=== PATIENT | female | born 1955 | race African-American/Black ===

== ENCOUNTER 2019-03-09 13:57 | Day surgery (SDC) | payer OTHER ==
[2019-03-09] MEDS ORDERED: Sodium Chloride 0.9(Preservative Free) 10 ML IJ ONE (13:58)
[2019-03-09] MEDS ORDERED: Xylocaine 1% Vial 30 ML PF IJ ONE (13:58)
[2019-03-09] MEDS ORDERED: Depo-Medrol 40 MG/ML IM ONE (13:58)
--- NOTE | 2019-03-09 16:43 | XRAY ---
Indication: Lumbar MARGY. Intraoperative fluoroscopy was provided for 14 seconds. 2 digital spot images submitted for interpretation demonstrates midline posterior needle tip projecting just posterior to the L3-L4 interspace. Correlate with intraoperative findings/report.
--- NOTE | 2019-03-09 16:54 | XRAY ---
19 seconds fluoroscopy time in surgery for lumbar MARGY.
== END 2019-03-09 15:49 | disposition home or self-care (01) ==
LOC: SDC-PAIN 13:57
PROVIDERS: ATTEND Psychiatry & Neurology Pain Medicine
DX: M54.16 Radiculopathy, lumbar region (principal); I10 Essential (primary) hypertension; M06.9 Rheumatoid arthritis, unspecified; K21.9 Gastro-esophageal reflux disease without esophagitis; F41.8 Other specified anxiety disorders; G62.9 Polyneuropathy, unspecified; Z86.73 Personal history of transient ischemic attack (TIA), and cerebral infarction without residual deficits
CPT/HCPCS: 62323; 72100; 77003; J1030; J2001; Q9966

== ENCOUNTER 2019-04-27 10:40 | Day surgery (SDC) | payer OTHER ==
[2019-04-27] MEDS ORDERED: Sodium Chloride 0.9(Preservative Free) 10 ML IJ ONE (10:41)
[2019-04-27] MEDS ORDERED: Depo-Medrol 40 MG/ML IM ONE (10:41)
[2019-04-27] MEDS ORDERED: DIPRIVAN 200 MG/20 ML IV ONE (11:45)
[2019-04-27] MEDS ORDERED: Ketamine HCl 50 MG/ML ONE (11:45)
--- NOTE | 2019-04-27 12:21 | XRAY ---
23 seconds fluoroscopy time in surgery for right L4-S1 transforaminal MARGY.
--- NOTE | 2019-04-27 12:21 | XRAY ---
Indication: Right L4-S1 transforaminal MARGY. Intraoperative fluoroscopy was provided for 23 seconds. 3 digital spot images submitted for interpretation demonstrates posterior needle tips projecting over the expected course of the right L4 and L5 nerve roots. Small amount of contrast injected for needle tip placement. Correlate with intraoperative findings/report.
[2019-04-27] MEDS ORDERED: Lactated Ringers 1,000 ML IV ONE (14:30)
== END 2019-04-27 12:20 | disposition home or self-care (01) ==
LOC: SDC-PAIN 10:40
PROVIDERS: ATTEND Psychiatry & Neurology Pain Medicine
DX: M54.16 Radiculopathy, lumbar region (principal); I10 Essential (primary) hypertension; K21.9 Gastro-esophageal reflux disease without esophagitis; F41.8 Other specified anxiety disorders; G62.9 Polyneuropathy, unspecified; M06.9 Rheumatoid arthritis, unspecified; Z79.899 Other long term (current) drug therapy
CPT/HCPCS: 64483; 64484; 72100; 77003; J1030; J2704; Q9966

== ENCOUNTER 2019-11-16 10:44 | Day surgery (SDC) | payer OTHER ==
[2019-11-16] MEDS ORDERED: Depo-Medrol 40 MG/ML IM ONE (10:45)
[2019-11-16] MEDS ORDERED: Sodium Chloride 0.9% 10 ML FLUSH Syringe IJ ONE (10:45)
[2019-11-16] MEDS ORDERED: Ketamine HCl 50 MG/ML ONE (11:58)
[2019-11-16] MEDS ORDERED: DIPRIVAN 200 MG/20 ML IV ONE (11:58)
--- NOTE | 2019-11-16 14:10 | XRAY ---
40 seconds fluoroscopy time in surgery for right L4-S1 transforaminal MARGY.
--- NOTE | 2019-11-16 14:21 | XRAY ---
Indication: Right L4-S1 transforaminal MARGY. Intraoperative fluoroscopy was provided for 40 seconds. For digital spot images submitted for interpretation demonstrates posterior needle tips projecting over the expected course of the right L4 and L5 nerve roots. Small amount of contrast injected for needle tip placement. Correlate with intraoperative findings/report.
[2019-11-16] MEDS ORDERED: Lactated Ringers 1,000 ML IV ONE (14:54)
== END 2019-11-16 12:35 | disposition home or self-care (01) ==
LOC: SDC-PAIN 10:44
PROVIDERS: ATTEND Psychiatry & Neurology Pain Medicine
DX: M54.16 Radiculopathy, lumbar region (principal); I10 Essential (primary) hypertension; G62.9 Polyneuropathy, unspecified; I25.2 Old myocardial infarction; Z86.73 Personal history of transient ischemic attack (TIA), and cerebral infarction without residual deficits; K21.9 Gastro-esophageal reflux disease without esophagitis; M06.9 Rheumatoid arthritis, unspecified; F41.8 Other specified anxiety disorders; Z79.899 Other long term (current) drug therapy
CPT/HCPCS: 64483; 64484; 72100; 77003; J1030; J2704; Q9966

== ENCOUNTER 2020-03-21 10:54 | Day surgery (SDC) | payer OTHER ==
[~2020-03-21 10:54] MED LIST: DIPRIVAN 200 MG/20 ML IV ONE; Ketamine HCl 50 MG/ML ONE
[2020-03-21] MEDS ORDERED: Sodium Chloride 0.9(Preservative Free) 10 ML IJ ONE (10:55)
[2020-03-21] MEDS ORDERED: Depo-Medrol 40 MG/ML IM ONE (10:55)
--- NOTE | 2020-03-21 13:06 | XRAY ---
Indication: Right L4-S1 transforaminal MARGY. Intraoperative fluoroscopy was provided for 50 seconds. 4 digital spot images submitted for interpretation demonstrates posterior needle tips projecting over the expected right L4 and L5 nerve roots. Small amount of contrast injected for needle tip placement. Correlate with intraoperative findings/report.
--- NOTE | 2020-03-21 13:27 | XRAY ---
50 seconds fluoroscopy time in surgery for right L4-S1 transforaminal MARGY.
[2020-03-21] MEDS ORDERED: Lactated Ringers 1,000 ML IV ONE (16:49)
== END 2020-03-21 12:57 | disposition home or self-care (01) ==
LOC: SDC-PAIN 10:54
PROVIDERS: ATTEND Psychiatry & Neurology Pain Medicine
DX: M54.16 Radiculopathy, lumbar region (principal); I10 Essential (primary) hypertension; M06.9 Rheumatoid arthritis, unspecified; G62.9 Polyneuropathy, unspecified; F41.8 Other specified anxiety disorders; Z79.899 Other long term (current) drug therapy
CPT/HCPCS: 64483; 64484; 72100; 77003; J1030; J2704; Q9966

== ENCOUNTER 2020-05-09 12:16 | Day surgery (SDC) | payer OTHER ==
[2020-05-09] MEDS ORDERED: LIDOCAINE HCL 2% 100 MG/5 ML IJ ONE (12:17)
[2020-05-09] MEDS ORDERED: Depo-Medrol 40 MG/ML IM ONE (12:17)
[2020-05-09] MEDS ORDERED: Ketamine HCl 50 MG/ML ONE (12:38)
[2020-05-09] MEDS ORDERED: DIPRIVAN 200 MG/20 ML IV ONE (12:38)
--- NOTE | 2020-05-09 15:04 | XRAY ---
Indication: Bilateral L4-S1 MBB. Intraoperative fluoroscopy was provided for 17 seconds. Single digital spot image submitted for interpretation demonstrates posterior needle tips projecting over the expected left and right L4-S1 nerve roots. Correlate with intraoperative findings/report.
--- NOTE | 2020-05-09 15:21 | XRAY ---
17 seconds fluoroscopy time in surgery for bilateral L4-S1 MBB.
[2020-05-09] MEDS ORDERED: Lactated Ringers 1,000 ML IV ONE (16:05)
== END 2020-05-09 13:08 | disposition home or self-care (01) ==
LOC: SDC-PAIN 12:16
PROVIDERS: ATTEND Psychiatry & Neurology Pain Medicine
DX: M47.816 Spondylosis without myelopathy or radiculopathy, lumbar region (principal); I10 Essential (primary) hypertension; K21.9 Gastro-esophageal reflux disease without esophagitis; M06.9 Rheumatoid arthritis, unspecified; G62.9 Polyneuropathy, unspecified; F41.8 Other specified anxiety disorders; Z79.899 Other long term (current) drug therapy
CPT/HCPCS: 64493; 64494; 72020; 77002; J1030; J2704

== ENCOUNTER 2020-07-11 10:53 | Day surgery (SDC) | payer OTHER ==
[2020-07-11] MEDS ORDERED: BUPIVACAINE 0.5% VIAL IJ ONE (10:54)
[2020-07-11] MEDS ORDERED: Depo-Medrol 40 MG/ML IM ONE (10:54)
[2020-07-11] MEDS ORDERED: Lactated Ringers 1,000 ML IV ONE (11:03)
[2020-07-11] MEDS ORDERED: DIPRIVAN 200 MG/20 ML IV ONE ×2 (13:09)
--- NOTE | 2020-07-11 13:59 | XRAY ---
Indication: Bilateral L4-S1 MBB. Intraoperative fluoroscopy provided for 45 seconds. Single digital spot image submitted for interpretation demonstrates posterior needle tips projecting over the expected left and right L4-S1 nerve roots. Correlate with intraoperative findings/report.
--- NOTE | 2020-07-11 14:08 | XRAY ---
45 seconds of fluoroscopy was used in surgery for a bilateral L4-L5 and L5-S1 MBB.
== END 2020-07-11 13:47 | disposition home or self-care (01) ==
LOC: SDC-PAIN 10:53
PROVIDERS: ATTEND Psychiatry & Neurology Pain Medicine
DX: M47.816 Spondylosis without myelopathy or radiculopathy, lumbar region (principal); I10 Essential (primary) hypertension; F41.8 Other specified anxiety disorders; M40.209 Unspecified kyphosis, site unspecified; G62.9 Polyneuropathy, unspecified
CPT/HCPCS: 64493; 64494; 72020; 77002; J1030; J2704

== ENCOUNTER 2020-08-22 14:47 | Day surgery (SDC) | payer OTHER ==
[~2020-08-22 14:47] MED LIST changes: -DIPRIVAN 200 MG/20 ML IV ONE; -Ketamine HCl 50 MG/ML ONE; +Lactated Ringers 1,000 ML IV ONE
[2020-08-22] MEDS ORDERED: Depo-Medrol 40 MG/ML IM ONE (14:48)
[2020-08-22] MEDS ORDERED: Xylocaine 1% Vial 30 ML PF IJ ONE (14:48)
[2020-08-22] MEDS ORDERED: BUPIVACAINE 0.5% VIAL IJ ONE (14:48)
[2020-08-22] MEDS ORDERED: DIPRIVAN 200 MG/20 ML IV ONE (16:08)
[2020-08-22] MEDS ORDERED: Ketamine HCl 50 MG/ML ONE (16:08)
--- NOTE | 2020-08-22 16:47 | XRAY ---
Indication: Right L4-S1 RFA. Intraoperative fluoroscopy provided for 41 seconds. 3 digital spot images submitted for interpretation demonstrates posterior needle tips projecting over the expected right L4-S1 nerve roots. Correlate with intraoperative findings/report.
--- NOTE | 2020-08-22 16:52 | XRAY ---
41 seconds fluoroscopy time in surgery for right L4-S1 RFA.
== END 2020-08-22 16:39 | disposition home or self-care (01) ==
LOC: SDC-PAIN 14:47
PROVIDERS: ATTEND Psychiatry & Neurology Pain Medicine
DX: M47.816 Spondylosis without myelopathy or radiculopathy, lumbar region (principal); I10 Essential (primary) hypertension; K21.9 Gastro-esophageal reflux disease without esophagitis; G62.9 Polyneuropathy, unspecified; F41.8 Other specified anxiety disorders; Z86.73 Personal history of transient ischemic attack (TIA), and cerebral infarction without residual deficits; M06.9 Rheumatoid arthritis, unspecified; Z79.899 Other long term (current) drug therapy
CPT/HCPCS: 64635; 64636; 72100; 77002; J1030; J2001; J2704

== ENCOUNTER 2020-09-12 11:44 | Day surgery (SDC) | payer OTHER ==
[2020-09-12] MEDS ORDERED: DIPRIVAN 200 MG/20 ML IV ONE (12:48)
--- NOTE | 2020-09-12 13:56 | XRAY ---
Indication: Left L4-S1 RFA. Intraoperative fluoroscopy was provided for 37 seconds. For digital spot images submitted for interpretation demonstrates posterior needle tips projecting over the expected left L4-S1 nerve roots. Correlate with intraoperative findings/report.
--- NOTE | 2020-09-12 13:58 | XRAY ---
37 seconds fluoroscopy time in surgery for left L4-S1 RFA.
[2020-09-12] MEDS ORDERED: Lactated Ringers 1,000 ML IV ONE (16:32)
== END 2020-09-12 13:26 | disposition home or self-care (01) ==
LOC: SDC-PAIN 11:44
PROVIDERS: ATTEND Psychiatry & Neurology Pain Medicine
DX: M47.817 Spondylosis without myelopathy or radiculopathy, lumbosacral region (principal); I10 Essential (primary) hypertension; M06.9 Rheumatoid arthritis, unspecified; K21.9 Gastro-esophageal reflux disease without esophagitis; F41.8 Other specified anxiety disorders; Z79.899 Other long term (current) drug therapy; Z86.73 Personal history of transient ischemic attack (TIA), and cerebral infarction without residual deficits
CPT/HCPCS: 64635; 64636; 72100; 77002; J2704